=== PATIENT | male | born 1935 ===

== ENCOUNTER → 2023-09-27 | Outpatient (CLI) | payer OTHER ==
[~2023-09-27] MED LIST: AMLO5 PO; ASPI81CH PO; ATEN50 PO; CLOP75 PO; INSULANPEN SC; LISI5 PO; PRAV20 PO; SITA100T2 PO
[2023-10-06 16:28] LABS: ALBUMIN %,URINE 69.9 %; ALPHA-1 %,URINE 8.7 %; ALPHA-2 %,URINE 4.2 %; BETA GLOBULIN %,URINE 8.4 %; GAMMA GLOBULIN %,URINE 8.8 %; HOURS COLLECTED Random hr; TOTAL PROTEIN,URINE-PER VOLUME 29 mg/dL; TOTAL VOLUME Random mL
== END ==
LOC: LAB 08:24 → LAB SHORT 08:24
PROVIDERS: Physician Assistant
DX: I12.9 Hypertensive chronic kidney disease with stage 1 through stage 4 chronic kidney disease, or unspecified chronic kidney disease (principal); N18.32 Chronic kidney disease, stage 3b
CPT/HCPCS: 82043; 84156; 84166; 86335

== ENCOUNTER → 2023-10-11 | Outpatient (CLI) | payer OTHER ==
[2023-10-11 15:30] LABS: Source, Urine Voided
[2023-10-11 16:50] LABS: Appearance, Urine Clear (Clear); Bilirubin, Urine Neg (Neg); Blood, Urine 2+ (Neg); Color, Urine Yellow (P-Yellow); Glucose Qualitative, Urine 1+ (Neg); Ketones, Urine Neg (Neg); Leukocyte Esterase, Urine Neg (Neg); Nitrite, Urine Neg (Neg); Protein, Urine 2+ (Neg); Urobilinogen, Urine NORM (Normal)
[2023-10-11 17:06] LABS: White Blood Cells, Urine 0-2 /hpf (0-5)
[2023-10-11 17:07] LABS: Bacteria Many /hpf; Hyaline Casts 0-2 /lpf (0-2); Squamous Epithelial Cells Rare /hpf (Few); Yeast/Fungi Urine Rare /hpf
[2023-10-11 17:30] LABS: Protein, Urine Random 60.2 mg/dL (0.0-11.9)
[2023-10-11 17:33] LABS: Creatinine, Urine Random 73.4 mg/dL (27.00-270.00); Microalb/Creat Ratio UR, Rand 325.613 mg/g (0.000-30.000); Protein/Creat Ratio, Ur Random 0.8
== END | disposition home or self-care (01) ==
LOC: LAB SHORT 15:23 → LAB 15:23
PROVIDERS: Hospitalist
DX: N18.32 Chronic kidney disease, stage 3b (principal)
CPT/HCPCS: 81001; 82043; 82570; 84156; 87086

== ENCOUNTER → 2024-07-20 | Outpatient (CLI) | payer OTHER | LOC: LAB SHORT 17:41 → LAB 17:41 | DX: L03.113 Cellulitis of right upper limb (principal) | CPT/HCPCS: 87070; 87075; 87077; 87147; 87186; 87205 ==

== ENCOUNTER 2024-07-24 18:36 | Inpatient (IN) | payer OTHER ==
[~2024-07-24] VITALS: Ht 162.6 cm; Wt 80.2 kg
[2024-07-24] MEDS ORDERED: CeFAZolin Sodium 2,000 MG in NS 100 ML IV ONE (21:15)
[2024-07-24] MEDS ORDERED: Vancomycin HCL 1,500 MG in NS 250 ML IV ONE (21:30)
[2024-07-24] MEDS ORDERED: FLU VACC TS2024-25(6MOS UP)/PF 45 MCG/0.5 ML SYRINGE IM ONE (22:45)
[2024-07-24] MEDS ORDERED: Ondansetron HCl 2 MG / ML 2ML Vial IV PRN (22:45)
[2024-07-24] MEDS ORDERED: NS 1,000 ML IV SCH (22:45)
[2024-07-24] MEDS ORDERED: Acetaminophen 325 MG TABLET PO PRN (22:45)
[2024-07-24] MEDS ORDERED: FentaNYL Citrate 50 MCG/ML 2 ML Injection IV PRN (22:45)
[2024-07-24] MEDS ORDERED: MethylPREDNISolone Sod Succ 125 MG Vial IV SCH (23:00)
[2024-07-24] MEDS ORDERED: Ampicillin Sod/Sulbactam Sod 3 GM in NS 100 ML IV SCH (23:04)
[2024-07-24 23:24] VITALS: BP 162/72
--- NOTE | 2024-07-24 23:30 | NUR ---
ARRIVAL TO SURGICAL UNIT ROOM 211 FROM ER. PT ARRIVED TO ROOM AT 2317. PT STOOD AND TRANSFERED WITH MINIMAL ASSIST AND CANE. PT IS WEAK AND UNSTEADY ON FEET. PT ORIENTED TO CALL LIGHT AND ROOM. PT DENIES IGNITION SOURCES. PT VERY HARD OF HEARING AND DOES NOT HAVE HEARING AIDS AT BEDSIDE. PT DENIES PAIN IN RIGHT ELBOW. CALL LIGHT IN REACH.
[2024-07-24] MEDS ORDERED: NS 250 ML IV PRN (23:40)
[2024-07-25 00:16] LABS: International Normalized Ratio 1.2; Prothrombin Time Results 12.7 Sec (9.7-11.5)
[2024-07-25] MEDS ORDERED: Ampicillin Sod/Sulbactam Sod 3 GM in NS 100 ML IV SCH (00:56)
[2024-07-25 04:31] VITALS: BP 132/63
[2024-07-25 05:10] LABS: Hematocrit 25.8 % (37.0-53.0); Hemoglobin 8.1 g/dL (13.5-17.5); Mean Corpuscular HGB 29.2 pg (26.0-34.0); Mean Corpuscular HGB Conc 31.4 g/dL (31.5-36.5); Mean Corpuscular Volume 93 fL (80-100); Mean Platelet Volume 10.2 fL (9.1-12.4); Platelet Count 124 K/mm3 (150-400); RDW Coefficient Variation 15.7 % (11.7-14.2); RDW Standard Deviation 53.3 fL (35.1-46.3); Red Blood Cell Count 2.77 M/mm3 (4.30-5.90)
[2024-07-25 05:37] LABS: BAND PERCENT MAN 1 % (0-8); BASOPHILS PERCENT MAN 0 % (0-2); EOSINOPHILS PERCENT MAN 0 % (0-6); LYMPHOCYTES ABSOLUTE MAN 7.39 K/mm3 (0.84-5.20); LYMPHOCYTES PERCENT MAN 66 % (21-46); MONOCYTES ABSOLUTE MAN 0.33 K/mm3 (0.16-1.47); MONOCYTES PERCENT MAN 3 % (4-13); NEUTROPHILS ABSOLUTE MAN 3.47 K/mm3 (1.96-9.15); SEG NEUTROPHILS PERCENT MAN 30 % (41-73); TOTAL CELLS COUNTED 100
[2024-07-25 05:41] LABS: Albumin, Blood 2.6 g/dL (3.4-5.0); Albumin/Globulin Ratio 0.6 (0.8-1.8); Bilirubin, Total 0.6 mg/dL (0.1-1.0); Bun/Creatinine Ratio 34.2 (12.0-20.0); Calcium, Blood 8.5 mg/dL (8.5-10.1); Creatinine, Blood 1.55 mg/dL (0.60-1.20); Potassium, Blood 5.3 mmol/L (3.5-5.5); Total Protein, Blood 6.6 g/dL (6.4-8.2)
--- NOTE | 2024-07-25 06:03 | NUR ---
SHIFT SUMMARY NOC. PT ADMITTED FOR SEPTIC OLECRANON. PT A/O X4 AND VERY HARD OF HEARING. PT HAS NON ADHERENT DRESSING AND KERLEX COVERING RIGHT ELBOW. ELBOW IS RED WITHIN MARKED MARGINS, DRAINING WHITE PURULENT DISHARGE INTO DRESSING. PT DENIES PAIN MEDICATIONS AND STATES IS TENDER, BUT TOLERABLE. PT IS A POOR HISTORIAN AND IS UNCLEAR ABOUT MEDICATIONS HE TAKES AT HOME. REPORTS HIS DAUGHTER GURJIT KNOWS HIS MEDS. PT GIVES FULL PERMISSON TO SPEAK WITH DTR GURJIT AND HIS . PT VOIDING URINE BUT MISSED THE URINE HAT. EDUCATION PROVIDED. MAKES NEEDS KNOWN, CALL LIGHT IN REACH.
[2024-07-25 07:06] VITALS: BP 124/89
[2024-07-25] MEDS ORDERED: Insulin Human Lispro 100 Units/ML 3ML Syringe SC SCH (07:30)
[2024-07-25] MEDS ORDERED: Insulin Glargine-Yfgn 100 Unit/mL 3 ML SYR SC SCH (09:00)
[2024-07-25] MEDS ORDERED: AmLODIPine Besylate 5 MG Tab PO SCH (09:00)
[2024-07-25] MEDS ORDERED: Aspirin 81 MG Chew PO SCH (09:00)
[2024-07-25] MEDS ORDERED: Tranexamic Acid 100 ML IV SCH (13:45)
[2024-07-25] MEDS ORDERED: Lactated Ringer's 1,000 ML IV SCH (13:50)
[2024-07-25 14:10] VITALS: BP 138/63
[2024-07-25] MEDS ORDERED: Monodox100 MG PO (14:24)
[2024-07-25] MEDS ORDERED: AMOX-CLAV 875-1 EAC5 PO (14:24)
[2024-07-25] MEDS ORDERED: LISINOPRIL-HCT1 EACH PO (14:25)
[2024-07-25] MEDS ORDERED: GLIP2.5ER PO (14:26)
[2024-07-25 14:44] VITALS: BP 147/71
--- NOTE | 2024-07-25 15:26 | NUR ---
PATIENT TO DAY SURGERY AT 1430
--- NOTE | 2024-07-25 16:55 | NUR ---
Pt. is sitting on the dav eof his bed and quickly diplays evidence of being [place]. Pt. initially verbalized, " I don't know you." After interoducting myself once more the Pt. welcomed my visit. The Pt. verbalized that he was not a practing man of sita, and that he had been scheduled for surgery that had to be postponed until tomorrow. Listen with empathy, and seek to normalize the Pts. experience. The Pt. welcomed this admin prog coord to return tomorrow.
--- NOTE | 2024-07-25 18:37 | NUR ---
SUMMARY PATIENT SURGERY CANCELLED D/T OR AVAILABILTY. PATIENT BACK TO ROOM WILL BE NPO AT MIDNIGHT. ELBOW DRESSING IS C/D/I. IV AT TKO. SBA TO BATHROOM, AOX4 CALLS APPROPRIATELY.
[2024-07-25 20:44] VITALS: BP 127/63
[2024-07-25 23:33] LABS: Vancomycin, Random 9.9 ug/mL
[2024-07-26] VITALS (14 sets, daily range): BP systolic 92–145; BP diastolic 49–77
[2024-07-26] MEDS ORDERED: Vancomycin HCL 1,000 MG in NS 250 ML IV SCH
[2024-07-26] MEDS ORDERED: Tranexamic Acid 100 ML IV SCH (02:00)
[2024-07-26 05:42] LABS: Hematocrit 25.1 % (37.0-53.0); Hemoglobin 7.8 g/dL (13.5-17.5); Mean Corpuscular HGB 29.1 pg (26.0-34.0); Mean Corpuscular HGB Conc 31.1 g/dL (31.5-36.5); Mean Corpuscular Volume 94 fL (80-100); Mean Platelet Volume 10.1 fL (9.1-12.4); Platelet Count 130 K/mm3 (150-400); RDW Coefficient Variation 15.6 % (11.7-14.2); RDW Standard Deviation 53.5 fL (35.1-46.3); Red Blood Cell Count 2.68 M/mm3 (4.30-5.90); White Blood Cell Count 13.27 K/mm3 (4.00-11.30)
[2024-07-26 06:06] LABS: BASOPHILS PERCENT MAN 0 % (0-2); EOSINOPHILS ABSOLUTE MAN 0.26 K/mm3 (0.00-0.68); EOSINOPHILS PERCENT MAN 2 % (0-6); LYMPHOCYTES % ATYPICAL MANUAL 4 % (0-0); LYMPHOCYTES ABSOLUTE MAN 9.68 K/mm3 (0.84-5.20); LYMPHOCYTES PERCENT MAN 69 % (21-46); MONOCYTES ABSOLUTE MAN 1.06 K/mm3 (0.16-1.47); MONOCYTES PERCENT MAN 8 % (4-13); NEUTROPHILS ABSOLUTE MAN 2.25 K/mm3 (1.96-9.15); SEG NEUTROPHILS PERCENT MAN 17 % (41-73); TOTAL CELLS COUNTED 100
[2024-07-26 06:19] LABS: Albumin, Blood 2.5 g/dL (3.4-5.0); Albumin/Globulin Ratio 0.7 (0.8-1.8); Bilirubin, Total 0.7 mg/dL (0.1-1.0); Bun/Creatinine Ratio 31.9 (12.0-20.0); Calcium, Blood 8.5 mg/dL (8.5-10.1); Creatinine, Blood 1.6 mg/dL (0.60-1.20); Globulin, Blood 3.6 g/dL (2.2-4.0); Phosphorus, Blood 3.7 mg/dL (2.5-4.9); Potassium, Blood 4.2 mmol/L (3.5-5.5); Total Protein, Blood 6.1 g/dL (6.4-8.2)
--- NOTE | 2024-07-26 08:58 | NUR ---
SHIFT SUMMARY NOC. PT ADMIT FOR SEPTIC OLECRANON, DRESSING C/D/I. PT DENIES NEED FOR PAIN MEDICATION THIS SHIFT. PT NPO SINCE 0000. PT FORGETFUL AT TIMES. PT GOT UP AND BECAME TANGLED IN CORDS AND REMOVED TELEMETRY. BED ALRM NOW SET FOR SAFETY. NO REPORTED TELE EVENTS. [facility] INFECTION PREVENTION DONE THIS SHIFT. PT VOIDING. CALL LIGHT IN REACH.
[2024-07-26] MEDS ORDERED: Lactobacil 2-S.Thermo-Bifido 1 1 Cap PO SCH (09:00)
[2024-07-26] MEDS ORDERED: Lactated Ringer's 1,000 ML IV SCH (09:55)
[2024-07-26] MEDS ORDERED: Lactated Ringer's 1,000 ML IV ONE (09:59)
[2024-07-26] MEDS ORDERED: Insulin Human Lispro 100 Units/ML 3ML Syringe SC SCH ×2 (12:00→21:00)
[2024-07-26] MEDS ORDERED: propofoL 20 ML IV ONE (12:20)
--- NOTE | 2024-07-26 17:01 | NUR ---
SHIFT SUMMARY POD0 R ELBOW I&D, A/OX4, VSS, TOLERATING PO, PAIN MANAGED PER EMAR, [place] BUT ABLE TO COMMUNICATE NEEDS DRESSING TO R ELBOW COVERED WITH CARLEE WRAP WITH ALL VISIBLE AREAS C/D/I. NO ACUTE EVENTS THIS SHIFT, CALL LIGHT IN REACH.
--- NOTE | 2024-07-27 03:23 | NUR ---
RAILROAD OPERATOR NOTIFICATION AT 0039--PT HAD 6 SECOND RUN OF SVT PT ASYMPTOMATIC, DENIES CHEST PAIN/PRESSURE.
--- NOTE | 2024-07-27 04:36 | NUR ---
TOURIST INFORMATION OFFICER SUMMARY PT A/OX4. FORGETFUL AT TIMES. PT [place]. PT POST OP FROM RIGHT ELBOW I&D. PT HAS DENIED PAIN T/O THE SHIFT AND DENIES NEED FOR PAIN INTERVENTION. PT IS 1PA TO BATHROOM. PT VOIDING THIS SHIFT. ABLE TO MAKE NEEDS KNOWN AND CALLS APPROPRIATELY. BED ALARM IN PLACE. WILL CONTINUE TO MONITOR UNTIL REPORT GIVEN TO ONCOMING NURSE.
[2024-07-27 05:16] VITALS: BP 109/74
[2024-07-27 05:36] LABS: Hemoglobin 7.9 g/dL (13.5-17.5); Mean Corpuscular HGB 29.3 pg (26.0-34.0); Mean Corpuscular HGB Conc 31.6 g/dL (31.5-36.5); Mean Corpuscular Volume 93 fL (80-100); Mean Platelet Volume 9.7 fL (9.1-12.4); Platelet Count 138 K/mm3 (150-400); RDW Coefficient Variation 15.9 % (11.7-14.2); RDW Standard Deviation 52.8 fL (35.1-46.3); White Blood Cell Count 19.42 K/mm3 (4.00-11.30)
[2024-07-27 05:52] LABS: Bun/Creatinine Ratio 29.1 (12.0-20.0); Calcium, Blood 8.2 mg/dL (8.5-10.1); Creatinine, Blood 1.72 mg/dL (0.60-1.20); Magnesium, Blood 2.1 mg/dL (1.6-2.4); Potassium, Blood 4.6 mmol/L (3.5-5.5)
[2024-07-27 07:37] VITALS: BP 124/81
[2024-07-27] MEDS ORDERED: VISBIOME 112.51 EACH PO (13:27)
[2024-07-27] MEDS ORDERED: Cleocin HCl150 MG PO (13:28)
--- NOTE | 2024-07-27 15:10 | NUR ---
DISCHARGE SUMMARY POD1 R ELBOW I&D, A/OX4, VSS, TOLERATING PO, PAIN WELL MANAGED PER EMAR, AMBULATING AT HIS BASELINE WITH A CANE, VOIDING INDEPENDENTLY, DRESSING TO R ELBOW C/D/I. DISCUSSED DISCHARGE INSTRUCTIONS WITH HIM AND HIS FAMILY INCLUDING HOME CARE, MEDICATIONS, AND FOLLOW UP APPOINTMENTS, NEW MEDS FAXED TO [facility] PER FAMILY REQUEST, PROVIDED HIM WITH AN ADDITIONAL ABD PAD AND CARLEE WRAP TO REINFORCE IF NEEDED WITH INSTRUCTIONS TO KEEP CLEAN AND DRY UNTIL TUESDAY FOLLOW UP. NO QUESTIONS AT THIS TIME, ESCORTED OUT VIA WC TO PRIVATE AUTO TO GO HOME. IV REMOVED DURING DC INSTRUCTIONS.
== END 2024-07-27 13:50 | disposition home or self-care (01) | DRG 501 ==
LOC: ER 18:36 → ERHOLD 21:54 → SURS 21:54
PROVIDERS: Hospitalist; Orthopaedic Surgery; ADMIT Internal Medicine
PROC: 0MB30ZZ Excision of Right Elbow Bursa and Ligament, Open Approach (ICD-10-PCS; principal; 2024-07-26 12:30)
DX: M71.121 Other infective bursitis, right elbow (principal); L03.113 Cellulitis of right upper limb; N18.30 Chronic kidney disease, stage 3 unspecified; D63.1 Anemia in chronic kidney disease; I12.9 Hypertensive chronic kidney disease with stage 1 through stage 4 chronic kidney disease, or unspecified chronic kidney disease; H91.90 Unspecified hearing loss, unspecified ear; E11.22 Type 2 diabetes mellitus with diabetic chronic kidney disease; E78.5 Hyperlipidemia, unspecified; M10.9 Gout, unspecified; Z79.82 Long term (current) use of aspirin; Z79.4 Long term (current) use of insulin; Z79.84 Long term (current) use of oral hypoglycemic drugs; Z79.02 Long term (current) use of antithrombotics/antiplatelets; Z79.899 Other long term (current) drug therapy
CPT/HCPCS: 36415; 80048; 80053; 80202; 82947; 83735; 83880; 84100; 85025; 85027; 85610; 87071; 87075; 87077; 87186; 87205; 99285-25; A9270; J0295; J0690; J1815; J2704; J2919; J3370; J7050; J7120

== ENCOUNTER 2024-09-14 08:52 | Day surgery (SDC) | payer OTHER ==
[~2024-09-14 08:52] MED LIST changes: +AMOX-CLAV 875-1 EAC5 PO; +Cleocin HCl150 MG PO; +GLIP2.5ER PO; +LISINOPRIL-HCT1 EACH PO; +Monodox100 MG PO; +VISBIOME 112.51 EACH PO
--- NOTE | 2024-09-14 10:26 | NUR ---
09/14/24 Dino6 Trish Whalen CASE CANCELLED D/T PT DRINKING 2OZ OF MILK TODAY AT 0730. PT HGB DRAWN ON 09/12/24 WAS 7.3. AND SPOKE TO PT AND PT FAMILY MEMBER ABOUT THE HGB LEVELS AND D/T PT HX OF RECENT FALL IT WAS DECIDED TO SEND PT TO ED. THIS RN WHEELED PT OVER TO ED WITH PT SISTER AND DAUGHTER. THE PT DAUGHTER WILL STAY WITH PT AT THE ED. PT LEFT [facility] AT 1015. A PCP LETTER WAS SENT TO PT PCP REGARDING RECENT AND PAST LAB HGB LEVELS VIA FAX.
== END 2024-09-14 10:15 | disposition other institution (70) ==
LOC: ORSCSDS 08:52
DX: Z98.890 Other specified postprocedural states (principal); M70.31 Other bursitis of elbow, right elbow; Z53.9 Procedure and treatment not carried out, unspecified reason

== ENCOUNTER 2024-09-14 10:17 | Emergency (ER) | payer OTHER ==
[~2024-09-14] VITALS: Ht 157.5 cm; Wt 77.6 kg
[2024-09-14 11:03] LABS: BASOPHILS ABSOLUTE AUTO 0.07 K/mm3 (0.00-0.23); BASOPHILS PERCENT AUTO 1 % (0-2); EOSINOPHILS ABSOLUTE AUTO 0.11 K/mm3 (0.00-0.68); EOSINOPHILS PERCENT AUTO 1 % (0-6); Hematocrit 22.9 % (37.0-53.0); Hemoglobin 7.2 g/dL (13.5-17.5); Mean Corpuscular HGB 30.3 pg (26.0-34.0); Mean Corpuscular HGB Conc 31.4 g/dL (31.5-36.5); Mean Corpuscular Volume 96 fL (80-100); Mean Platelet Volume 9.7 fL (9.1-12.4); Platelet Count 120 K/mm3 (150-400); RDW Coefficient Variation 17.7 % (11.7-14.2); RDW Standard Deviation 61.4 fL (35.1-46.3); Red Blood Cell Count 2.38 M/mm3 (4.30-5.90); White Blood Cell Count 12.13 K/mm3 (4.00-11.30)
[2024-09-14 11:10] LABS: IMMATURE GRAN ABSOLUTE AUTO 0.04 K/mm3 (0.00-0.10); IMMATURE GRAN PERCENT AUTO 0 % (0-1); LYMPHOCYTES ABSOLUTE AUTO 7.83 K/mm3 (0.84-5.20); LYMPHOCYTES PERCENT AUTO 65 % (21-46); MONOCYTES ABSOLUTE AUTO 1.39 K/mm3 (0.16-1.47); MONOCYTES PERCENT AUTO 12 % (4-13); NEUTROPHILS ABSOLUTE AUTO 2.69 K/mm3 (1.96-9.15); NEUTROPHILS PERCENT AUTO 22 % (41-73)
[2024-09-14 11:27] LABS: BASOPHILS PERCENT MAN 0 % (0-2); EOSINOPHILS PERCENT MAN 0 % (0-6); LYMPHOCYTES ABSOLUTE MAN 8.49 K/mm3 (0.84-5.20); LYMPHOCYTES PERCENT MAN 70 % (21-46); MONOCYTES ABSOLUTE MAN 1.09 K/mm3 (0.16-1.47); MONOCYTES PERCENT MAN 9 % (4-13); NEUTROPHILS ABSOLUTE MAN 2.54 K/mm3 (1.96-9.15); SEG NEUTROPHILS PERCENT MAN 21 % (41-73); TOTAL CELLS COUNTED 100
[2024-09-14 11:43] LABS: Albumin, Blood 3.1 g/dL (3.4-5.0); Albumin/Globulin Ratio 0.9 (0.8-1.8); Bilirubin, Total 0.7 mg/dL (0.1-1.0); Bun/Creatinine Ratio 21.5 (12.0-20.0); Creatinine, Blood 2.61 mg/dL (0.60-1.20); Globulin, Blood 3.5 g/dL (2.2-4.0); Potassium, Blood 5.1 mmol/L (3.5-5.5); Total Protein, Blood 6.6 g/dL (6.4-8.2)
[2024-09-14 12:45] VITALS: BP 109/58
== END 2024-09-14 12:56 | disposition home or self-care (01) ==
LOC: ER 10:17
PROVIDERS: Emergency Medicine
DX: D64.9 Anemia, unspecified (principal); I12.9 Hypertensive chronic kidney disease with stage 1 through stage 4 chronic kidney disease, or unspecified chronic kidney disease; E11.22 Type 2 diabetes mellitus with diabetic chronic kidney disease; N18.30 Chronic kidney disease, stage 3 unspecified; E78.5 Hyperlipidemia, unspecified; Z79.4 Long term (current) use of insulin; Z79.899 Other long term (current) drug therapy; Z79.84 Long term (current) use of oral hypoglycemic drugs; Z79.82 Long term (current) use of aspirin; Z79.02 Long term (current) use of antithrombotics/antiplatelets; Z79.2 Long term (current) use of antibiotics
CPT/HCPCS: 80053; 85025; 86850; 86900; 86901; 99284

== ENCOUNTER → 2025-03-14 | Outpatient (CLI) | payer OTHER ==
[2025-03-14 16:39] LABS: Hematocrit 23.0 % (37.0-53.0); Hemoglobin 7.0 g/dL (13.5-17.5); Mean Corpuscular HGB Conc 30.4 g/dL (31.5-36.5); Mean Corpuscular Volume 103 fL (80-100); NRBC ABSOLUTE 0.00 K/mm3 (0.00-0.02); NRBC Auto 0.0 /100 WBC (0.0-0.2); Platelet Count 109 K/mm3 (150-400); RDW Coefficient Variation 18.0 % (11.7-14.2); RDW Standard Deviation 65.5 fL (35.1-46.3)
[2025-03-14 17:04] LABS: BASOPHILS ABSOLUTE MAN 0.14 K/mm3 (0.00-0.23); BASOPHILS PERCENT MAN 1 % (0-2); EOSINOPHILS ABSOLUTE MAN 0.14 K/mm3 (0.00-0.68); EOSINOPHILS PERCENT MAN 1 % (0-6); LYMPHOCYTES ABSOLUTE MAN 10.71 K/mm3 (0.84-5.20); LYMPHOCYTES PERCENT MAN 75 % (21-46); MONOCYTES ABSOLUTE MAN 0.71 K/mm3 (0.16-1.47); MONOCYTES PERCENT MAN 5 % (4-13); NEUTROPHILS ABSOLUTE MAN 2.57 K/mm3 (1.96-9.15); SEG NEUTROPHILS PERCENT MAN 18 % (41-73)
[2025-03-14 17:22] LABS: Alanine Aminotransfer (ALT/SGP 13.0 U/L (12-78); Albumin, Blood 3.1 g/dL (3.4-5.0); Albumin/Globulin Ratio 0.9 (0.8-1.8); Anion Gap 9.0 mmol/L (3-11); Aspartate Aminotrans (AST/SGOT 7.0 U/L (12-37); Bilirubin, Total 0.9 mg/dL (0.1-1.0); Blood Urea Nitrogen 45.0 mg/dL (8-24); CO2, Blood 24.0 mmol/L (21-32); Calcium, Blood 8.6 mg/dL (8.5-10.1); Chloride, Blood 109.0 mmol/L (98-108); Creatinine, Blood 1.5 mg/dL (0.60-1.20); Ferritin, Serum 166.0 ng/mL (26-388); Globulin, Blood 3.6 g/dL (2.2-4.0); Glucose, Blood 132.0 mg/dL (70-99); Potassium, Blood 4.4 mmol/L (3.5-5.5); Sodium, Blood 138.0 mmol/L (136-145); Total Iron Binding Capacity 227.0 ug/dL (250-450); Total Protein, Blood 6.7 g/dL (6.4-8.2)
== END ==
LOC: LAB 15:12 → LAB SHORT 15:12
PROVIDERS: Family Medicine
DX: I12.9 Hypertensive chronic kidney disease with stage 1 through stage 4 chronic kidney disease, or unspecified chronic kidney disease (principal); E11.22 Type 2 diabetes mellitus with diabetic chronic kidney disease; N18.32 Chronic kidney disease, stage 3b; D64.9 Anemia, unspecified
CPT/HCPCS: 80053; 82728; 83540; 83550; 84550; 85025

== ENCOUNTER → 2025-04-09 | Outpatient (CLI) | payer OTHER | LOC: LAB 14:40 → LAB SHORT 14:40 | DX: M10.9 Gout, unspecified (principal) | CPT/HCPCS: 84550 ==

== ENCOUNTER → 2025-04-24 | Outpatient (CLI) | payer OTHER ==
[2025-04-24 17:20] LABS: Anion Gap 9.0 mmol/L (3-11); Blood Urea Nitrogen 55.0 mg/dL (8-24); CO2, Blood 22.0 mmol/L (21-32); Calcium, Blood 8.2 mg/dL (8.5-10.1); Chloride, Blood 111.0 mmol/L (98-108); Creatinine, Blood 1.72 mg/dL (0.60-1.20); Glucose, Blood 115.0 mg/dL (70-99); Potassium, Blood 3.8 mmol/L (3.5-5.5); Sodium, Blood 138.0 mmol/L (136-145); Uric Acid, Blood 8.9 mg/dL (3.5-7.2)
== END ==
LOC: LAB 13:35 → LAB SHORT 13:35
PROVIDERS: Student in an Organized Health Care Education/Training Program
DX: M10.9 Gout, unspecified (principal)
CPT/HCPCS: 80048; 84550